=== PATIENT | female | born 2000 | race Caucasian/White ===

== ENCOUNTER → 2020-02-12 14:08 | Outpatient (CLI) | payer OTHER, SELFPAY ==
--- NOTE | ~2020-02-12 | XR_ITS ---
EXAMINATION: XR shoulder RT min 2V INDICATION: Right shoulder pain TECHNIQUE: Four views of the right shoulder are submitted. COMPARISON: None FINDINGS: Normal alignment. No fracture. Glenohumeral and acromioclavicular joint spaces are normal. Soft tissues are unremarkable. Thoracic spine fusion hardware is noted. IMPRESSION: 1. No acute osseous abnormality. Reviewed, dictated and finalized at location A. Y EQUIPMENT OPERATOR
--- NOTE | ~2020-02-12 | XR_ITS ---
EXAMINATION: XR hand RT min 3V INDICATION: Right hand pain TECHNIQUE: Three views of the right hand are obtained. COMPARISON: None available FINDINGS: There is no fracture, dislocation, or subluxation. The bones, soft tissues, and joint space s are normal. IMPRESSION: 1. No acute osseous abnormality. Reviewed, dictated and finalized at location A. ENERGY MECHANIC
== END ==
PROVIDERS: PCP Pediatrics; Visit Provider Specialist
DX: R52 Pain, unspecified (principal)
CPT/HCPCS: 73030; 73130